=== PATIENT | male | born 1965 | race Caucasian/White ===

== ENCOUNTER 2019-02-15 07:35 | Inpatient (IN) | payer BC ==
[2019-02-15 08:16] LABS: BASO # 0.1 K/uL (0.0-0.2); BASO % 0.9 % (0.0-2.0); EOS # 0.1 K/uL (0.0-0.7); EOS % 1.4 % (0.0-4.0); HEMOGLOBIN 14.1 g/dL (12.0-18.0); LYMPH # 3.1 K/uL (1.0-4.3); LYMPH % 43.6 % (20.0-40.0); MEAN CORPUSCULAR HGB CONC 33.8 g/dL (33.0-37.0); MEAN PLATELET VOLUME 8.9 fL (7.2-11.7); MONO # 0.6 K/uL (0.0-0.8); MONO % 7.8 % (0.0-10.0); NEUT # 3.3 K/uL (1.8-7.0); NEUT % 46.3 % (50.0-75.0); NRBC % 0.1 % (0.0-2.0); RBC 4.56 Mil/uL (4.40-5.90); RED CELL DISTRIBUTION WIDTH 13.4 % (11.5-14.5); URINE BILIRUBIN NEGATIVE (NEGATIVE); URINE CLARITY Clear (Clear); URINE COLOR Yellow (YELLOW); URINE GLUCOSE (UA) NORMAL (Normal); URINE LEUKOCYTE ESTERASE NEG Leu/uL (Negative); URINE PROTEIN NEGATIVE (NEGATIVE); URINE UROBILINOGEN NORMAL mg/dL (0.2-1.0); WHITE BLOOD COUNT 7.1 K/uL (4.8-10.8)
[2019-02-15 08:17] LABS: MEAN CELL VOLUME 91.8 fL (80.0-94.0)
--- NOTE | 2019-02-15 08:21 | C.PDOC ---
History Of Present Illness 53 y/o male presents to the ER requesting detox from ETOH. Patient states that he drinks regularly and his last drink was in the morning today. Patient reports that he had detox 10 years ago. He notes that he has history of pre-diabetes. Denies having suicidal ideation, homicidal ideation, active physical complaints, and history of seizures. Time Seen by Provider: 02/15/19 07:41 Chief Complaint (Nursing): Substance Abuse History Per: Patient History/Exam Limitations: no limitations Past Medical History Reviewed: Historical Data, Nursing Documentation, Vital Signs Vital Signs: Last Vital Signs Temp 98.4 F 02/15/19 07:40 Pulse 83 02/15/19 07:40 Resp 18 02/15/19 07:40 BP 141/94 H 02/15/19 07:40 Pulse Ox 98 02/15/19 07:40 - Medical History PMH: Dementia Surgical History: Cholecystectomy - [facility] Procedures CLOSURE SKIN & SUBCUTANEOUS NEC (05/10/14) REMOVAL FB FROM HAND (05/10/14) Family History: States: No Known Family Hx - Social History Hx Tobacco Use: No Hx Alcohol Use: Yes Hx Substance Use: Yes (marijuana) - Immunization History Hx Tetanus Toxoid Vaccination: No Hx Influenza Vaccination: No Hx Pneumococcal Vaccination: No Review Of Systems Except As Marked, All Systems Reviewed And Found Negative. Constitutional: Negative for: Fever, Chills Psych: Negative for: Suicidal ideation Physical Exam - Physical Exam Appears: Non-toxic, No Acute Distress, Other (calm, cooperative) Skin: Normal Color, Warm, Dry Head: Atraumatic, Normacephalic Eye(s): bilateral: Normal Inspection Nose: Normal Oral Mucosa: Moist Neck: Supple Cardiovascular: Rhythm Regular Respiratory: Normal Breath Sounds, No Rales, No Rhonchi, No Wheezing Gastrointestinal/Abdominal: Normal Exam, Soft, No Tenderness, No Guarding, No Hernia Neurological/Psych: Oriented x3, Normal Speech ED Course And Treatment - Laboratory Results Result Diagrams: 02/15/19 08:09 02/15/19 08:09 Lab Interpretation: Normal O2 Sat by Pulse Oximetry: 98 (RA) Pulse Ox Interpretation: Normal Progress Note: Case discussed with reinforcing iron worker helper who evaluated patient and request admission to detox Reassessment Condition: Unchanged Medical Decision Making Medical Decision Making: Plan: --Labs --UA Disposition Discussed With : Yuri Mata Doctor Will See Patient In The: Hospital - Disposition Disposition: HOSPITALIZED Disposition Time: 13:00 Condition: GOOD - POA Present On Arrival: None - Clinical Impression Clinical Impression: Drug dependence, Drug abuse - PA / MIX MAKER / Resident Statement MD/DO has reviewed & agrees with the documentation as recorded. - Scribe Statement The provider has reviewed the documentation as recorded by the Sharmila Flynn Provider Attestation All medical record entries made by the Christianoibtan were at my direction and personally dictated by me. I have reviewed the chart and agree that the record accurately reflects my personal performance of the history, physical exam, medical decision making, and the department course for this patient. I have also personally directed, reviewed, and agree with the discharge instructions and disposition. Decision To Admit - Pt Status Changed To: Hospital Disposition Of: Inpatient - Admit Certification Admit to Inpatient:: After my assessment, the patient will require hospitalization for at least two midnights. This is because of the severity of symptoms shown, intensity of services needed, and/or the medical risk in this patient being treated as an outpatient. - InPatient: Physician Admission Certification: I certify that this patient requires 2 or more midnights of care for the following reason:: Alcohol abuse/dependence - . Bed Request Type: Detox Admitting Physician: Yuri Mata Patient Diagnosis: Drug dependence, Drug abuse
[2019-02-15 08:25] LABS: ALB/GLOB RATIO 1.7 (1.0-2.1); ALT/SGPT 30 U/L (21-72); AST/SGOT 52 U/L (17-59); BLOOD UREA NITROGEN 14 mg/dL (9-20); GFR NON-AFRICAN AMERICAN > 60
[2019-02-15 08:27] LABS: URINE BLOOD 1+ (NEGATIVE)
[2019-02-15 08:37] LABS: BARBITURATES, UR NEGATIVE (NEGATIVE); BENZODIAZEPINES, UR NEGATIVE (NEGATIVE); OPIATES, UR NEGATIVE (NEGATIVE); PHENCYCLIDINE, UR NEGATIVE (NEGATIVE)
[2019-02-15] MEDS ORDERED: Multiple Vitamins Tab PO SCH (10:45)
--- NOTE | 2019-02-15 11:55 | PCM.BM ---
<Lore Hernandez - Last Filed: 02/15/19 11:52> Treatment Plan Problems - Problems identified on initial assessmt Anxiety Related to Substance Use Date Initiated: 02/15/19 Assessment reference: NA Status: Active Defensive Coping Date Initiated: 02/15/19 Assessment reference: NA Status: Active Knowledge Deficit: Alcohol Use Date Initiated: 02/15/19 Assessment reference: NA Treatment assets and liabiliti Patient Assests: adapts well, cooperative, insightful, motivated, ADL independent, good support system, negotiates basic needs Patient Liabilities: substance abuse - Milieu Protocol Maintain good personal hygiene: daily Encourage regular showers, daily Remind patient to perform daily oral care, daily Assist patient to perform ADL's Conduct patient checks and document Observation sheet: Q15 minutes Maintain personal safety: every shift Educate patient to report safety concerns to staff, every shift Monitor environment for contraband/sharps Medication safety: Monitor for expected outcome, potential side effects: every shift, Assess barriers to learning: every shift, Assess readiness for medication education: every shift <Gwen Benavides - Last Filed: 02/15/19 13:03> Family Contact Family involvement: Family/SO is involved Family contact name: [email or web address] Family contacted how many times per week?: 3 - Goals for Treatment Patient goals for treatment: Complete detox and transition to short term inpatient rehab. Discharge/Continuing Care - Education Needs Education Needs: Patient Medication, Patient Diagnosis/Disease Process, Patient Coping Skills, Patient Anger Management skills, Patient Placement options, Patient Community resources - Discharge Discharge Criteria: No longer exhibiting s/s of withdrawal, Reduction of target symptoms Discharge to:: Substance Abuse Rehab - Treatment Team Participation Patient/Family/SO Statement: 02/15/19 13:03 "I need to go inpatient after this...I have the time..." Discussed with Family/SO: No Was Patient/Family/SO present at Treatment Team Meeting: Yes
--- NOTE | 2019-02-15 13:20 | PCM.PSYCH ---
Initial Psychiatric Evaluation - Initial Psychiatric Evaluation Type of Admission: Voluntary Legal Status: Capacity Chief Complaint (in patient's own words): "My life is not going well" History of Present Illness and Precipitating Events: Patient is seen, chart reviewed and plan discussed with team. Patient is a 53 YO LM, with 2 children age 28 and 29. Currently living with daughter and son-in law at his home. He currently works at the [employer]. Patient admitted to detox unit for alcohol use. He reports starting to drink at age 11, it becoming problematic in his 20s when he was in the . He drinks 1 pint of tequila and 6 beers per day, his last drink was early this morning. He has been in detox twice before, last detox in [facility] and has never been to rehab. He has not been able to stay clean off alcohol for a prolonged period of time. He received antabuse in the [place] for alcohol abuse, but has not received any medication since. He reports getting tremulous and other withdrawal symptoms when not using alcohol. No seizures but he says he ay have had DTs. He currently also uses marijuana, a few joints a day. He denies other drugs. He reports depression, wishing he were prior to admission (no alejandrina plan or intention now) and feeling disappointed, ashamed and "very anxious." He plans to attend a proper program after work, or even take time off for rehab. Currently, CIWA is 10 and rising. He will need meds to avoid worse wdw sxs and he also has Psych Hx - Depressed on and off, not treated Fam pych Hx - Everyone in my family drinks Medications - NA Medical Hx - pre-diabetic, obese, ignoring health Trauma - denies Current Medications: Active Medications Generic Name Dose Route Start Last Admin Trade Name Freq PRN Reason Stop Dose Admin Chlordiazepoxide 25 mg 02/15/19 12:00 02/15/19 11:04 Librium PO 02/20/19 11:59 25 mg Q6H ANTON Administration Taper Chlordiazepoxide 25 mg 02/15/19 10:30 Librium PO Q4H PRN Alcohol Withdrawal Clonidine HCl 0.1 mg 02/15/19 10:30 Catapres PO Q4H PRN Symptoms of alcohol withdrawl Folic Acid 1 mg 02/15/19 10:45 02/15/19 11:04 Folic Acid PO 1 mg DAILY ANTON Administration Multivitamins 1 tab 02/15/19 10:45 02/15/19 11:04 Hexavitamin PO 1 tab DAILY ANTON Administration Naltrexone HCl 50 mg 02/15/19 10:45 02/15/19 11:04 Revia PO 50 mg DAILY ANTON Administration Thiamine HCl 100 mg 02/15/19 10:45 02/15/19 11:03 Vitamin B1 Tab PO 100 mg DAILY ANTON Administration Trazodone HCl 50 mg 02/15/19 10:30 Desyrel PO HS PRN Insomnia Past Psychiatric History - Past Psychiatric History Pertinent Medical Hx (Current Medical&Sleep Prob, Allergies): Allergies Allergy/AdvReac Type Severity Reaction Status Date / Time No Known Allergies Allergy Verified 02/15/19 07:45 Folic Acid 1 mg PO DAILY 02/15/19 Multivitamins [Hexavitamin] 1 tab PO DAILY 02/15/19
[2019-02-15 13:47] VITALS: RESP 18
[2019-02-15 16:50] VITALS: O2SAT 96
[2019-02-15 19:47] VITALS: BP 135/80; PULSE 79; TEMP 98.3
--- NOTE | 2019-02-16 12:26 | PCM.PYCHDC ---
Mental Status Examination - Mental Status Examination Orientation: Person Discharge Summary - Discharge Note Consultations:: List each consultation separately and include: 1. Reason for request. 2. Findings. 3. Follow-up Summary of Hospital Course include:: 1. Description of specific treatment plan utilized for patients during their course of treatmen. 2. Summarize the time- course for resolution of acute symptoms and/or regressed behaviors. 3. Describe issues identified and worked on during hospitalization. 4. Describe medication utilized. 5. Describe medical problems identified and treated. 6. Reassessment of suicide risk Summary of Hospital Course: Patient is seen, chart reviewed and plan discussed with team. Patient is a 53 YO LM, with 2 children age 28 and 29. Currently living with daughter and son-in law at his home. He currently works at the [employer] office. Patient admitted to detox unit for alcohol use. He reports starting to drink at age 11, it becoming problematic in his 20s when he was in the . He drinks 1 pint of tequila and 6 beers per day, his last drink was early this morning. He has been in detox twice before, last detox in [facility] and has never been to rehab. He has not been able to stay clean off alcohol for a prolonged period of time. He received antabuse in the [place] for alcohol abuse, but has not received any medication since. He reports getting tremulous and other withdrawal symptoms when not using alcohol. No seizures but he says he ay have had DTs. He currently also uses marijuana, a few joints a day. He denies other drugs. He reports depression, wishing he were prior to admission (no alejandrina plan or intention now) and feeling disappointed, ashamed and "very anxious." He plans to attend a proper program after work, or even take time off for rehab. Currently, CIWA is 10 and rising. He will need meds to avoid worse wdw sxs and he also has Psych Hx - Depressed on and off, not treated Fam pych Hx - Everyone in my family drinks Medications - NA Medical Hx - pre-diabetic, obese, ignoring health Trauma - denies - Final Diagnosis (DSM 5) Condition upon Discharge: GOOD Disposition: AGAINST MEDICAL ADVICE
== END 2019-02-15 23:27 | disposition left against medical advice (07) | DRG 894 ==
LOC: C.ER 07:35 → C.7D 09:36
PROVIDERS: ADMIT Psychiatry & Neurology Psychiatry; ATTEND Psychiatry & Neurology Psychiatry
DX: F10.10 Alcohol abuse, uncomplicated (principal); Y90.7 Blood alcohol level of 200-239 mg/100 ml; F12.90 Cannabis use, unspecified, uncomplicated; F03.90 Unspecified dementia, unspecified severity, without behavioral disturbance, psychotic disturbance, mood disturbance, and anxiety